=== PATIENT | male | born 2000 | race Caucasian/White ===

== ENCOUNTER 2022-07-13 00:52 | Emergency (ER) | payer BC, OTHER ==
[2022-07-13] MEDS ORDERED: Lidocaine 1% 5 ML VIAL INJECT ONE (01:19)
[2022-07-13] MEDS ORDERED: Bacitracin Oint 1 GM U/D Packet TOP ONE ×2 (01:20→01:49)
== END 2022-07-13 01:58 | disposition home or self-care (01) ==
LOC: JP.ED 00:52
DX: S01.81XA Laceration without foreign body of other part of head, initial encounter (principal); S01.511A Laceration without foreign body of lip, initial encounter; Z79.899 Other long term (current) drug therapy; Y04.0XXA Assault by unarmed brawl or fight, initial encounter
CPT/HCPCS: 12011; 99283